=== PATIENT | female | born 1995 | race Caucasian/White ===

== ENCOUNTER 2020-03-04 01:26 | Inpatient (IN) | payer BC ==
[2020-03-04] MEDS ORDERED: Nalbuphine 10 MG/ML Syringe IVPUSH PRN (19:42)
[2020-03-04] MEDS ORDERED: Sodium Chloride 0.9% 10 ML Syringe FLUSH PRN (19:42)
[2020-03-04] MEDS ORDERED: Ondansetron 4 MG/2 ML SDV IVPUSH PRN (19:42)
[2020-03-04] MEDS ORDERED: Oxytocin/Lactated Ringers 10 UNIT/1,000 ML BAG IV SCH ×2 (19:45)
[2020-03-04] MEDS: Lactated Ringers 1,000 ML IV SCH ×3 (20:31→22:50)
[2020-03-04] MEDS ORDERED: ePHEDrine 50 MG/ML SDV IVPUSH PRN (21:03)
[2020-03-04] MEDS ORDERED: Bupivacaine/fentaNYL/NS 100 ML Bag EPIDUR PRN (21:03)
[2020-03-04] MEDS ORDERED: fentaNYL 100 MCG/2 ML SDV EPIDUR PRN (21:03)
[2020-03-04] MEDS ORDERED: diphenhydrAMINE 50 MG/ML SDV IVPUSH PRN (21:03)
--- NOTE | 2020-03-04 21:29 | PCM.PREANE ---
Preanesthetic Assessment - Procedure Proposed Procedure: katharina - Anesthesia/Transfusion/Family Hx Anesthesia History: Prior Anesthesia Without Reaction Family History of Anesthesia Reaction: No Transfusion History: No Prior Transfusion(s) - Review of Systems General: No Symptoms Pulmonary: No Symptoms Cardiovascular: No Symptoms Gastrointestinal: No Symptoms Neurological: No Symptoms Other: Reports: None - Physical Assessment Vital Signs: Last Vital Signs Temp 98.5 F 03/04/20 19:42 Pulse 97 03/04/20 19:42 Resp 14 03/04/20 19:42 BP 134/87 03/04/20 19:42 Pulse Ox 98 03/04/20 19:42 Height: 5 ft 5 in Weight: 70.023 kg ASA Class: 2 Mental Status: Alert & Oriented x3 Airway Class: Mallampati = 1 Dentition: Reports: Normal Dentition Thyro-Mental Finger Breadths: 3 Mouth Opening Finger Breadths: 3 ROM/Head Extension: Full Lungs: Clear to Auscultation, Normal Respiratory Effort Cardiovascular: Regular Rate, Regular Rhythm - Lab Values: Laboratory Last Values WBC 10.01 K/mm3 (3.98-10.04) 03/04/20 20:36 RBC 4.20 M/mm3 (3.98-5.22) 03/04/20 20:36 Hgb 12.2 gm/dl (11.2-15.7) 03/04/20 20:36 Hct 37.4 % (34.1-44.9) 03/04/20 20:36 MCV 89.0 fl (79.4-94.8) 03/04/20 20:36 MCH 29.0 pg (25.6-32.2) 03/04/20 20:36 MCHC 32.6 g/dl (32.2-35.5) 03/04/20 20:36 RDW Std Deviation 41.0 fL (36.4-46.3) 03/04/20 20:36 Plt Count 200 K/mm3 (182-369) 03/04/20 20:36 MPV 10.7 fl (9.4-12.3) 03/04/20 20:36 Neut % (Auto) 77.1 % (34.0-71.1) H 03/04/20 20:36 Lymph % (Auto) 16.5 % (19.3-51.7) L 03/04/20 20:36 [place] % (Auto) 5.5 % (4.7-12.5) 03/04/20 20:36 Eos % (Auto) 0.4 (0.7-5.8) L 03/04/20 20:36 Baso % (Auto) 0.1 % (0.1-1.2) 03/04/20 20:36 Neut # (Auto) 7.72 K/mm3 (1.56-6.13) H 03/04/20 20:36 Lymph # (Auto) 1.65 K/mm3 (1.18-3.74) 03/04/20 20:36 [place] # (Auto) 0.55 K/mm3 (0.24-0.36) H 03/04/20 20:36 Eos # (Auto) 0.04 K/mm3 (0.04-0.36) 03/04/20 20:36 Baso # (Auto) 0.01 K/mm3 (0.01-0.08) 03/04/20 20:36 SARS-CoV-2 RNA (CLAU) Negative (NEGATIVE) 03/04/20 19:25 - Allergies Allergies/Adverse Reactions: Allergies Allergy/AdvReac Type Severity Reaction Status Date / Time No Known Allergies Allergy Verified 03/04/20 19:25 - Blood Blood Available: No - Acknowledgements Anesthesia Type Planned: Epidural Pt an Appropriate Candidate for the Planned Anesthesia: Yes Alternatives and Risks of Anesthesia Discussed w Pt/Guardian: Yes Pt/Guardian Understands and Agrees with Anesthesia Plan: Yes PreAnesthesia Questionnaire Cardiovascular History: Reports: None Respiratory History: Reports: None Gastrointestinal History: Reports: None HAND PRESSER History: Reports: : 2 Para: 1 Hematologic History: Reports: Anemia - Infectious Disease History Infectious Disease History: Reports: Chicken Pox - Past Surgical History Female Surgical History: Reports: Breast Reduction - SUBSTANCE USE Tobacco Use Status *Q: Never Tobacco User Tobacco Use Within Last Twelve Months: No Second Hand Smoke Exposure: No Days Per Week of Alcohol Use: 0 Recreational Drug Use History: No - HOME MEDS Home Medications: Home Meds Ferrous Sulfate [Iron] 325 mg PO DAILY 03/04/20 [History] Vits #93/Iron Fum/FA [ Formula Tablet] 1 tab PO DAILY 03/04/20 [History] - CURRENT (IN HOUSE) MEDS Current Meds: Current Medications Diphenhydramine HCl (Benadryl) 25 mg IVPUSH Q6H PRN PRN Reason: pruritis Ephedrine Sulfate (Ephedrine Sulfate) 5 mg IVPUSH ASDIRECTED PRN PRN Reason: Hypotension Fentanyl (Sublimaze) 100 mcg EPIDUR Q3H PRN PRN Reason: Pain Last Admin: 03/04/20 21:19 Dose: 100 mcg Documented by: Fentanyl/Bupivacaine HCl (Fentanyl/Bupivacaine/Ns 2 Mcg-0.125% 100 Ml) 100 ml EPIDUR ASDIRECTED PRN PRN Reason: Pain Last Admin: 03/04/20 21:16 Dose: 100 ml Documented by: Lactated Ringer's (Ringers, Lactated) 1,000 mls @ 100 mls/hr IV ASDIRECTED LUIS Last Admin: 03/04/20 20:31 Dose: 100 mls/hr Documented by: Oxytocin/Lactated Ringer's (Pitocin In Lr 10 Units/1,000 Ml) 10 unit in 1,000 mls @ 12 mls/hr IV TITRATE LUIS; Protocol Oxytocin/Lactated Ringer's (Pitocin In Lr 10 Units/1,000 Ml) 10 unit in 1,000 mls @ 100 mls/hr IV .CONTINUOUS LUIS Nalbuphine HCl (Nubain) 10 mg IVPUSH Q2H PRN PRN Reason: Pain Ondansetron HCl (Zofran) 4 mg IVPUSH Q4H PRN PRN Reason: Nausea/Vomiting Sodium Chloride (Saline Flush) 10 ml FLUSH ASDIRECTED PRN PRN Reason: Keep Vein Open
--- NOTE | 2020-03-04 22:14 | PCM.LDHP ---
L&D History of Present Illness - General Date of Service: 03/04/20 Admit Problem/Dx: Patient Status Order with Admit Dx/Problem 03/04/20 19:42 Admission Status [Patient Status] [ADT] Routine Admission Diagnosis/Problem Admission Diagnosis/Problem 03/04/20 22:04 Kerrie is a 24-year-old 2 para 1-0-0-1 white female at 39-1/7 weeks gestational age with an JEREMIAS of 03/10/2020 who was admitted on 03/04/2020 active induction of labor. Source of Information: Patient History Limitations: Reports: No Limitations - History of Present Illness Introduction:: Kerrie is a 24-year-old 2 para 1-0-0-1 white female at 39-1/7 weeks gestational age with an JEREMIAS of 03/10/2020 who was admitted on 03/04/2020 active induction of labor. Procedure of induction of labor, its risks, benefits and alternatives including allowing for natural onset of labor are also discussed with patient. She appears to understand and wishes to proceed. SIGNS CLEANER history: 2 para 1-0-0-1. JEREMIAS 03/10/2020 was set by a certain last menstrual period starting 06/04/2019 and supported by ultrasounds done on 07/21/2019 at 6-4/7 weeks gestational age, ultrasound done on 08/21/2019 and and ultrasound done on 11/06/2019. Patient had menarche at approximately age 11. Cycles are regular on a monthly basis. LMP 06/04/2019 was certain and she was not using any control at the time of conception. Her last vaginal delivery occurred on 07/17/2012 at 38 weeks gestational age after 12 hours of labor. She delivered a 7 pound 2 ounce male via normal spontaneous vaginal delivery. She had an epidural for labor analgesia. course: Patient was first seen at 6 weeks for an initial ultrasound evaluation. Her first medical visit however otherwise was on 08/21/2019. She was seen on a regular basis throughout the . Her weight gain was from 123 up to 148.8 pounds for a 25.8 pound increase. Her vital signs remained stable throughout the course. Her fundal height growth was appropriate. Pat ient is group B strep negative. She is heterozygous factor V positive. She has a history of breast reduction surgery. She desires epidural in labor and delivery. Her [place] depression screen score is 1/30 on 11/03/2019. She had flu vaccination administered on 02/10/2020. She had a negative prequell noninvasive screen. She had a normal 1 hour GTT. Patient had her Tdap on 01/13/2020. She is rubella immune. HPV immunization occurred in 2007. Hepatitis B immunizations occurred in 1994. Meningococcal immunizations occurred in 2006. Laboratory testing in : Blood is a positive with a negative antibody screen. First laboratory testing showed a hemoglobin which was 13.4. Platelets were 282,000. She is rubella immune. RPR is nonreactive. Urine cu lture was negative. Hepatitis B surface antigen and HIV assays were both negative as were her chlamydia and gonorrhea tests. Second trimester laboratory testing showed a hemoglobin which was 11.5 g/dL and platelets that were at 224,000. Her diabetic screening test was normal at 85. Group B strep screen was negative. An RPR done on 12/03/2019 was negative. Patient reported no close contacts with Covid 19 virus positive patients. Allergies: None Medications: 1. vitamins 1 daily 2. Ferrous sulfate 325 mg p.o. daily. Past medical history: 1. Normal spontaneous vaginal delivery 07/17/2012 Past surgical history: 1. Breast reduction surgery 2012. Family history: Mother is alive and well age 60. She did have a history of miscarriage. Father is alive, on high blood pressure medication and is age 64. 2 brothers one with depression and one with high blood pressure. 2 sisters alive and well. One sister with a miscarriage x2 he had a sister with and was 1 miscarriage. Maternal grandmother is from old age and other causes unknown. Paternal grandfather cause unknown. Paternal grandmother is secondary to Alzheimer's disease. Paternal grandfather is secondary to old age and unknown causes. There is no family history of cancer, bleeding or blood clotting disorders, anesthesia related issues or related issues. Social history: Patient is . is Maxim Miramontes. 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 They live in [place]. She does not use any significant also alcohol, drugs or tobacco. Review of systems: In general patient has no complaints. She reports good activity. Skin: Negative Lungs: No infectious symptoms or shortness of breath Cardiovascular: No chest pain or exercise intolerance Breasts: No lumps, changes in size, pain, dimpling, discharge or axillary or supraclavicular concerns. Changes associated with . GI: Negative : changes only. Musculoskeletal: Negative Neurological: Negative Physical exam: In general the patient is well-developed, well-nourished, pleasant female of stated age in no acute distress. On last evaluation clinic patient's weight was 148.8. Blood pressure is 122/60. heart rate was 144. Skin is warm dry without lesions. HEENT, neck and back within normal limits. Lungs are clear with good breath sounds in all lung davis. Cardiovascular exam shows regular and rhythm without murmurs. Breast exam is deferred having been done at first visit and found to be normal is not repeated at this time. Abdomen is gravid with fundal height on last evaluation clinic at 37 cmconsistent with dates. Genital per digital exam on last evaluation in clinic shows cervix to be 3 cm dilated, 80% effaced, soft, mid position and -3 station with vertex presentation.. Extremities and neurological exam are grossly within normal limits. Pain Score: 3 - Related Data Allergies/Adverse Reactions: Allergies Allergy/AdvReac Type Severity Reaction Status Date / Time No Known Allergies Allergy Verified 03/04/20 19:25 Home Medications: Home Meds Ferrous Sulfate [Iron] 325 mg PO DAILY 03/04/20 [History] Vits #93/Iron Fum/FA [ Formula Tablet] 1 tab PO DAILY 03/04/20 [History] Past Medical History Cardiovascular History: Reports: None Respiratory History: Reports: None Gastrointestinal History: Reports: None SIGNS CLEANER History: Reports: Hematologic History: Reports: Anemia - Infectious Disease History Infectious Disease History: Reports: Chicken Pox - Past Surgical History Female Surgical History: Reports: Breast Reduction Social & Family History - Family History Family Medical History: Noncontributory - Tobacco Use Tobacco Use Status *Q: Never Tobacco User Second Hand Smoke Exposure: No - Alcohol Use Days Per Week of Alcohol Use: 0 - Recreational Drug Use Recreational Drug Use: No H&P Review of Systems - Review of Systems: Review Of Systems: See Below L&D Exam - Exam Exam: See Below - Vital Signs Vital Signs: Last Vital Signs Temp 36.9 C 03/04/20 19:42 Pulse 97 03/04/20 19:42 Resp 14 03/04/20 19:42 BP 134/87 03/04/20 19:42 Pulse Ox 98 03/04/20 19:42 Weight: 70.023 kg - Patient Data Lab Results Last 24 hrs: Laboratory Results - last 24 hr 03/04/20 03/04/20 Range/Units 19:25 20:36 WBC 10.01 (3.98-10.04) K/mm3 RBC 4.20 (3.98-5.22) M/mm3 Hgb 12.2 (11.2-15.7) gm/dl Hct 37.4 (34.1-44.9) % MCV 89.0 (79.4-94.8) fl MCH 29.0 (25.6-32.2) pg MCHC 32.6 (32.2-35.5) g/dl RDW Std Deviation 41.0 (36.4-46.3) fL Plt Count 200 (182-369) K/mm3 MPV 10.7 (9.4-12.3) fl Neut % (Auto) 77.1 H (34.0-71.1) % Lymph % (Auto) 16.5 L (19.3-51.7) % [place] % (Auto) 5.5 (4.7-12.5) % Eos % (Auto) 0.4 L (0.7-5.8) Baso % (Auto) 0.1 (0.1-1.2) % Neut # (Auto) 7.72 H (1.56-6.13) K/mm3 Lymph # (Auto) 1.65 (1.18-3.74) K/mm3 [place] # (Auto) 0.55 H (0.24-0.36) K/mm3 Eos # (Auto) 0.04 (0.04-0.36) K/mm3 Baso # (Auto) 0.01 (0.01-0.08) K/mm3 SARS-CoV-2 RNA (CLAU) Negative (NEGATIVE) Result Diagrams: 03/04/20 20:36 Problem List Initiated/Reviewed/Updated: Yes Orders Last 24hrs: Active Orders 24 hr Category Date Time Status Admission Status [Patient Status] [ADT] Routine ADT 03/04/20 19:42 Active Activity as Tolerated [RC] PFP Care 03/04/20 19:42 Active Communication Order [RC] ASDIRECTED Care 03/04/20 19:42 Active Non Stress Test [RC] PER UNIT ROUTINE Care 03/04/20 19:42 Active Notify Provider [RC] ASDIRECTED Care 03/04/20 21:03 Active Notify Provider [RC] PFP Care 03/04/20 19:42 Active Notify Provider [RC] PRN Care 03/04/20 19:42 Active Peripheral IV Care [RC] . DIRECTED Care 03/04/20 19:43 Active Pump Management, Intrathecal [RC] ASDIRECTED Care 03/04/20 19:43 Active Vital Signs [RC] PER UNIT ROUTINE Care 03/04/20 19:42 Active Regular Diet [DIET] Diet 03/05/20 Breakfast Active BLOOD BANK HOLD SPECIMEN [BBK] Stat Lab 03/04/20 19:42 Ordered RAPID PLASMA REAGIN,RPR [CHEM] Routine Lab 03/04/20 20:36 Received Bupivacaine/fentaNYL/NS [fentaNYL/Bupivacaine/NS 2 MCG- Med 03/04/20 21:03 Active 0.125% 100 ML] 100 ml EPIDUR ASDIRECTED PRN Lactated Ringers [Ringers, Lactated] 1,000 ml Med 03/04/20 19:45 Active IV ASDIRECTED Nalbuphine [Nubain] Med 03/04/20 19:42 Active 10 mg IVPUSH Q2H PRN Ondansetron [Zofran] Med 03/04/20 19:42 Active 4 mg IVPUSH Q4H PRN Oxytocin/Lactated Ringers [Pitocin in LR 10 Units/1,000 Med 03/04/20 19:45 Active ML] 10 unit in 1,000 ml IV .CONTINUOUS Oxytocin/Lactated Ringers [Pitocin in LR 10 Units/1,000 Med 03/04/20 19:45 Active ML] 10 unit in 1,000 ml IV TITRATE Sodium Chloride 0.9% [Saline Flush] Med 03/04/20 19:42 Active 10 ml FLUSH ASDIRECTED PRN diphenhydrAMINE [Benadryl] Med 03/04/20 21:03 Active 25 mg IVPUSH Q6H PRN ePHEDrine [ePHEDrine sulfate] Med 03/04/20 21:03 Active 5 mg IVPUSH ASDIRECTED PRN fentaNYL [Sublimaze] Med 03/04/20 21:03 Active 100 mcg EPIDUR Q3H PRN Electronic Heart Tones Ext w TOCO [WOMSER] Oth 03/04/20 19:42 Ordered Routine Electronic Heart Tones Internal [WOMSER] Per Unit Oth 03/04/20 19:42 Ordered Routine Peripheral IV Insertion Adult [OM.PC] Routine Oth 03/04/20 19:42 Ordered Resuscitation Status Routine Resus Stat 03/04/20 19:42 Ordered Medication Orders Diphenhydramine HCl (Benadryl) 25 mg IVPUSH Q6H PRN PRN Reason: pruritis Ephedrine Sulfate (Ephedrine Sulfate) 5 mg IVPUSH ASDIRECTED PRN PRN Reason: Hypotension Fentanyl (Sublimaze) 100 mcg EPIDUR Q3H PRN PRN Reason: Pain Last Admin: 03/04/20 21:19 Dose: 100 mcg Documented by: DUKACAR Fentanyl/Bupivacaine HCl (Fentanyl/Bupivacaine/Ns 2 Mcg-0.125% 100 Ml) 100 ml EPIDUR ASDIRECTED PRN PRN Reason: Pain Last Admin: 03/04/20 21:16 Dose: 100 ml Documented by: DUKACAR Lactated Ringer's (Ringers, Lactated) 1,000 mls @ 100 mls/hr IV ASDIRECTED LUIS Last Admin: 03/04/20 20:31 Dose: 100 mls/hr Documented by: DUKACAR Oxytocin/Lactated Ringer's (Pitocin In Lr 10 Units/1,000 Ml) 10 unit in 1,000 mls @ 12 mls/hr IV TITRATE LUSI; Protocol Oxytocin/Lactated Ringer's (Pitocin In Lr 10 Units/1,000 Ml) 10 unit in 1,000 mls @ 100 mls/hr IV .CONTINUOUS LUIS Nalbuphine HCl (Nubain) 10 mg IVPUSH Q2H PRN PRN Reason: Pain Ondansetron HCl (Zofran) 4 mg IVPUSH Q4H PRN PRN Reason: Nausea/Vomiting Sodium Chloride (Saline Flush) 10 ml FLUSH ASDIRECTED PRN PRN Reason: Keep Vein Open Assessment/Plan Comment:: Haresh Sy is a 24-year-old 2 para 1-0-0-1 white female at 39-1/7 weeks gestational age with an JEREMIAS of 03/10/2020 who was admitted on 03/04/2020 active induction of labor. 2. Group B strep screen negative 3. Risk factors include heterozygous factor V positive statuspatient is not a candidate for thromboembolism prophylaxis. 4. Patient is status post breast reduction surgery. 5. Patient has had her flu shot administered during on 02/10/2020. 6. Patient has had her Tdap during the course of on 01/13/2020 7. Patient had a negative prequel noninvasive screen 8. Patient had a normal 1 hour GTT. Plan: 1. Admit for artificial rupture of membranes induction of labor. Will use Pitocin augmentation if indicated. 2. Epidural as needed for labor analgesia 3. Routine labor care 4. Anticipate normal spontaneous vaginal delivery.
[2020-03-05] MEDS ORDERED: Bupivacaine 0.25% 10 ML SDV ONE
--- NOTE | 2020-03-05 01:54 | PCM.SN.2 ---
- Free Text/Narrative Note: Delivery note: Kerrie is a 24-year-old 2 para 1-0-0-1 white female at 39-1/7 weeks gestational age with an JEREMIAS of 03/10/2020 who was admitted on 03/04/2020 active induction of labor. After discussion of the procedure, risk, benefits, alternatives of care she is in agreement and will be to proceed with induction. Induction consist of artificial rupture membranes. Patient was 3 cm, 80% effaced, very soft, -1, anterior, vertex presentationamniotic fluid was clear. Labor ensued and the patient progressed well during the course of the evening and night with at approximately 0115 hrs. on 03/05/2020 the patient became completely dilated. She pushed x2 contractions delivered a viable, harper, Female named Alex Kramer. The baby delivered in a direct occiput anterior position over an intact perineum. No problems were encountered with the delivery. Baby was placed on mom's abdomen. Nose and mouth were bulb suctioned and baby was dried with warm blanket. The Pitocin was increased to 500 cc/h to facilitate increase in uterine tone and decrease likelihood of uterine bleeding. The umbilical cord was noted to have a true knot within it. It was a very healthy robust cord with significant amount of Magnolia's jelly. After 2 to 3 minutes the cord was clamped x2 and cut by the baby's father down. 3 vessels were noted within the cord. Cord blood was obtained. The peritoneum was confirmed to be intact and no suturing was required. The placenta delivered intact and complete at 0132 hrs. It presented in a Gordon presentation with a slight heart-shaped appearance. It was inspected and then it was discarded per patient desire. Estimated blood loss was 200 cc. Condition: Good
[2020-03-05] MEDS ORDERED: Acetaminophen 325 MG Tab PO PRN (02:32)
[2020-03-05] MEDS ORDERED: Benzocaine/Menthol 20%-0.5% Spray 56 GM Canister TOP PRN (02:32)
[2020-03-05] MEDS ORDERED: Witch Hazel Medicated Pads 40/Jar TOP PRN (02:32)
[2020-03-05] MEDS: Ibuprofen 600 MG Tab PO PRN ×4 (02:58→19:51)
--- NOTE | 2020-03-05 07:42 | PCM48HPAN ---
Post Anesthesia Note - EVALUATION WITHIN 48HRS OF ANESTHETIC Vital Signs in Normal Range: Yes Patient Participated in Evaluation: Yes Respiratory Function Stable: Yes Airway Patent: Yes Cardiovascular Function Stable: Yes Hydration Status Stable: Yes Pain Control Satisfactory: Yes Nausea and Vomiting Control Satisfactory: Yes Mental Status Recovered: Yes Vital Signs: Last Vital Signs Temp 36.9 C 03/04/20 19:42 Pulse 97 03/04/20 19:42 Resp 14 03/04/20 19:42 BP 134/87 03/04/20 19:42 Pulse Ox 98 03/04/20 19:42
[2020-03-05] MEDS: Docusate Sodium 100 MG Cap PO PRN ×2 (08:16→19:52)
[2020-03-05] MEDS: Prenatal Multivitamin with Calcium/Folic Acid/Iron Tab PO SCH (08:17)
[2020-03-06] MEDS: Ibuprofen 600 MG Tab PO PRN ×2 (03:07→09:21)
[2020-03-06] MEDS: Docusate Sodium 100 MG Cap PO PRN (09:21)
[2020-03-06] MEDS: Prenatal Multivitamin with Calcium/Folic Acid/Iron Tab PO SCH (09:23)
--- NOTE | 2020-03-06 09:46 | PCM.SN.2 ---
- Free Text/Narrative Note: Post Progress Note PPD #1 Subjective: Doing well overall. Ambulating without difficulty. Lochia minimal. Voiding without difficulty. Tolerating regular diet without nausea or vomiting. Pain controlled with oral medications. Breast-feeding with minimal difficulty. Objective: Vitals: Vital Signs - 24 hr 03/05/20 03/05/20 03/05/20 15:55 16:00 19:47 Temperature 36.1 C 36.6 C Pulse, 58 L 61 Peripheral Respiratory 15 16 Rate Blood Pressure 118/72 120/88 O2 Sat by Pulse 100 99 Oximetry 03/06/20 03:07 Temperature 36.4 C Pulse, 70 Peripheral Respiratory 14 Rate Blood Pressure 112/69 O2 Sat by Pulse 98 Oximetry Physical Exam General: Alert and oriented, no acute distress Lungs: Clear to auscultation bilaterally Heart: Regular rate and rhythm Abdomen: Soft, minimal appropriate tenderness, non-distended, fundus midline, nontender, and at the umbilicus Extremities: No edema Laboratory Tests 03/04/20 03/04/20 03/04/20 Range/Units 19:25 20:36 20:36 WBC 10.01 (3.98-10.04) K/mm3 RBC 4.20 (3.98-5.22) M/mm3 Hgb 12.2 (11.2-15.7) gm/dl Hct 37.4 (34.1-44.9) % MCV 89.0 (79.4-94.8) fl MCH 29.0 (25.6-32.2) pg MCHC 32.6 (32.2-35.5) g/dl RDW Std Deviation 41.0 (36.4-46.3) fL Plt Count 200 (182-369) K/mm3 MPV 10.7 (9.4-12.3) fl Neut % (Auto) 77.1 H (34.0-71.1) % Lymph % (Auto) 16.5 L (19.3-51.7) % [place] % (Auto) 5.5 (4.7-12.5) % Eos % (Auto) 0.4 L (0.7-5.8) Baso % (Auto) 0.1 (0.1-1.2) % Neut # (Auto) 7.72 H (1.56-6.13) K/mm3 Lymph # (Auto) 1.65 (1.18-3.74) K/mm3 [place] # (Auto) 0.55 H (0.24-0.36) K/mm3 Eos # (Auto) 0.04 (0.04-0.36) K/mm3 Baso # (Auto) 0.01 (0.01-0.08) K/mm3 RPR Non-reactive (NONREACTIVE) SARS-CoV-2 RNA (CLAU) Negative (NEGATIVE) ASSESSMENT: 24-year-old female -0-0-2 s/p normal vaginal delivery PPD #1, complicated by heterozygous factor V Leiden without personal or family history of VTE and history of breast reduction surgery PLAN: Doing well Breast-feeding with minimal difficulty. Assist as needed Lochia minimal. Continue to monitor for appropriate lochia. Continue routine care Patient diagnosed with factor V Leiden heterozygous disorder during this . She does not have a history of VTE and there is no family history of VTE in a first-degree relative. Discussed the risks of increased chances for VTE in the state and she states understanding. Patient declines anticoagulation at this time. Anticipate discharge home today Sammy Limon MD 9:43 AM 03/06/2020
--- NOTE | 2020-03-06 09:54 | PCM.DCSUM1 ---
Discharge Summary - Hospital Course Free Text/Narrative:: Delivery note: Kerrie is a 24-year-old 2 para 1-0-0-1 white female at 39-1/7 weeks gestational age with an JEREMIAS of 03/10/2020 who was admitted on 03/04/2020 active induction of labor. After discussion of the procedure, risk, benefits, alternatives of care she is in agreement and will be to proceed with induction. Induction consist of artificial rupture membranes. Patient was 3 cm, 80% effaced, very soft, -1, anterior, vertex presentationamniotic fluid was clear. Labor ensued and the patient progressed well during the course of the evening and night with at approximately 0115 hrs. on 03/05/2020 the patient became completely dilated. She pushed x2 contractions delivered a viable, harper, Female named Alex Kramer. The baby delivered in a direct occiput anterior position over an intact perineum. No problems were encountered with the delivery. Baby was placed on mom's abdomen. Nose and mouth were bulb suctioned and baby was dried with warm blanket. The Pitocin was increased to 500 cc/h to facilitate increase in uterine tone and decrease likelihood of uterine bleeding. The umbilical cord was noted to have a true knot within it. It was a very healthy robust cord with significant amount of Nancy's jelly. After 2 to 3 minutes the cord was clamped x2 and cut by the baby's father down. 3 vessels were noted within the cord. Cord blood was obtained. The peritoneum was confirmed to be intact and no suturing was required. The placenta delivered intact and complete at 0132 hrs. It presented in a Gordon presentation with a slight heart-shaped appearance. It was inspected and then it was discarded per patient desire. Estimated blood loss was 200 cc. Condition: Good HPI Initial Comments: Delivery note: Kerrie is a 24-year-old 2 para 1-0-0-1 white female at 39-1/7 weeks gestational age with an JEREMIAS of 03/10/2020 who was admitted on 03/04/2020 active induction of labor. After discussion of the procedure, risk, benefits, alternatives of care she is in agreement and will be to proceed with induction. Induction consist of artificial rupture membranes. Patient was 3 cm, 80% effaced, very soft, -1, anterior, vertex presentationamniotic fluid was clear. Labor ensued and the patient progressed well during the course of the evening and night with at approximately 0115 hrs. on 03/05/2020 the patient became completely dilated. She pushed x2 contractions delivered a viable, harper, Female Infant named Alex Kramer. The baby delivered in a direct occiput anterior position over an intact perineum. No problems were encountered with the delivery. Baby was placed on mom's abdomen. Nose and mouth were bulb suctioned and baby was dried with warm blanket. The Pitocin was increased to 500 cc/h to facilitate increase in uterine tone and decrease likelihood of uterine bleeding. The umbilical cord was noted to have a true knot within it. It was a very healthy robust cord with significant amount of Nancy's jelly. After 2 to 3 minutes the cord was clamped x2 and cut by the baby's father down. 3 vessels were noted within the cord. Cord blood was obtained. The peritoneum was confirmed to be intact and no suturing was required. The placenta delivered intact and complete at 0132 hrs. It presented in a Gordon presentation with a slight heart-shaped appearance. It was inspected and then it was discarded per patient desire. Estimated blood loss was 200 cc. Condition: Good Brief History: Delivery note: Kerrie is a 24-year-old 2 para 1-0-0-1 white female at 39-1/7 weeks gestational age with an JEREMIAS of 03/10/2020 who was admitted on 03/04/2020 active induction of labor. After discussion of the procedure, risk, benefits, alternatives of care she is in agreement and will be to proceed with induction. Induction consist of artificial rupture membranes. Patient was 3 cm, 80% effaced, very soft, -1, anterior, vertex presentationamniotic fluid was clear. Labor ensued and the patient progressed well during the course of the evening and night with at approximately 0115 hrs. on 03/05/2020 the patient became completely dilated. She pushed x2 contractions delivered a viable, harper, Female named Alex Kramer. The baby delivered in a direct occiput anterior position over an intact perineum. No problems were encountered with the delivery. Baby was placed on mom's abdomen. Nose and mouth were bulb suctioned and baby was dried with warm blanket. The Pitocin was increased to 500 cc/h to facilitate increase in uterine tone and decrease likelihood of uterine bleeding. The umbilical cord was noted to have a true knot within it. It was a very healthy robust cord with significant amount of Ogle's jelly. After 2 to 3 minutes the cord was clamped x2 and cut by the baby's father down. 3 vessels were noted within the cord. Cord blood was obtained. The peritoneum was confirmed to be intact and no suturing was required. The placenta delivered intact and complete at 0132 hrs. It presented in a Gordon presentation with a slight heart-shaped appearance. It was inspected and then it was discarded per patient desire. Estimated blood loss was 200 cc. Condition: Good Diagnosis: Stroke: No - Discharge Data Discharge Date: 03/06/20 Discharge Disposition: Home, Self-Care 01 Condition: Good - Referral to Home Health Primary Care Physician: Alexis Tello MD - Patient Summary/Data Complications: None Consults: None Hospital Course: Kerrie Miramontes was admitted for induction of labor. On admission her cervix was dilated to 3 cm. She was GBS negative. She was given pitocin for augmentation. She had artificial rupture of membranes with clear fluid. She was given an epidural for anesthesia. She progressed to complete and began pushing. On 03/05/2020 she had a normal vaginal delivery of a live female at 13:26. Apgars of 8 and 9. Weight of 3510 g (7 pounds 11.8 ounces). Her course was uneventful. Her pain was well controlled and she had minimal lochia. She was ambulating, tolerating a regular diet and voiding normally. She was breast-feeding with minimal difficulty. She was afebrile and her hematocrit was 37.4 on admission. She desired to be discharged home on the morning of PPD #1. Her blood type is A+. Patient has heterozygous factor V Leiden disease without personal or family history of VTE and declines anticoagulation prophylaxis. - Patient Instructions Diet: Regular Diet as Tolerated Activity: Apply Ice, As Tolerated Activity, Other: Nothing in the vagina for 6 weeks Driving: May Drive Today Showering/Bathing: May Shower Notify Provider of: Fever, Increased Pain, Swelling and Redness, Drainage, Nausea and/or Vomiting Other/Special Instructions: Please contact your physician's office if you have heavy vaginal bleeding enough to soak a pad in less than an hour for several hours. Monitor for any signs of an infection in the breasts with severe pain or redness of the breast. - Discharge Plan *PRESCRIPTION DRUG MONITORING PROGRAM REVIEWED*: Not Applicable *COPY OF PRESCRIPTION DRUG MONITORING REPORT IN PATIENT VIKTOR: Not Applicable Home Medications: Home Meds Ferrous Sulfate [Iron] 325 mg PO DAILY 03/04/20 [History] Vits #93/Iron Fum/FA [ Formula Tablet] 1 tab PO DAILY 03/04/20 [History] Acetaminophen [Tylenol] 650 mg PO Q6H PRN #60 tablet 03/06/20 [Rx] Benzocaine/Menthol [Dermoplast Pain Relief Mauldin] 1 spray TOP ASDIRECTED PRN canister 03/06/20 [Rx] Docusate Sodium [Colace] 100 mg PO BID PRN cap 03/06/20 [Rx] Ibuprofen [Motrin] 600 mg PO Q6H PRN tablet 03/06/20 [Rx] blaire Collado [Tucks] 1 pad TOP ASDIRECTED PRN pad 03/06/20 [Rx] Patient Handouts: Care After Vaginal Delivery Referrals: Alexis Tello MD [Primary Care Provider] - (Follow-up in 2 to 3 weeks for routine visit or earlier as needed) - Discharge Summary/Plan Comment DC Time >30 min.: No - Patient Data Vitals - Most Recent: Last Vital Signs Temp 36.4 C 03/06/20 03:07 Pulse 70 03/06/20 03:07 Resp 14 03/06/20 03:07 BP 112/69 03/06/20 03:07 Pulse Ox 98 03/06/20 03:07 Weight - Most Recent: 70.023 kg I&O - Last 24 hours: Intake & Output 03/05/20 03/06/20 03/06/20 22:59 06:59 14:59 Intake Total 240 Balance 240 Med Orders - Current: Current Medications Acetaminophen (Tylenol) 650 mg PO Q4H PRN PRN Reason: mild pain or fever Benzocaine/Menthol (Dermoplast Pain Relief Mauldin) 0 gm TOP ASDIRECTED PRN PRN Reason: Perineal Comfort Measure Last Admin: 03/05/20 02:57 Dose: 1 canister Documented by: Docusate Sodium (Colace) 100 mg PO BID PRN PRN Reason: Constipation Last Admin: 03/06/20 09:21 Dose: 100 mg Documented by: Ibuprofen (Motrin) 600 mg PO Q4H PRN PRN Reason: Mild pain or fever Last Admin: 03/06/20 09:21 Dose: 600 mg Documented by: Prenat Multivit/Inspector Machine Cut Glass/Iron/Folic Ac ( Plus Iron) 1 each PO DAILY LUIS Last Admin: 03/06/20 09:23 Dose: Not Given Documented by: Blaire Collado (Colleen) 1 pad TOP ASDIRECTED PRN PRN Reason: Perineal Comfort Measure Last Admin: 03/05/20 02:56 Dose: 1 canister Documented by: Discontinued Medications Bupivacaine HCl (Sensorcaine-Mpf 0.25%) 10 ml .ROUTE .[facility] Stop: 03/05/20 00:01 Diphenhydramine HCl (Benadryl) 25 mg IVPUSH Q6H PRN PRN Reason: pruritis Ephedrine Sulfate (Ephedrine Sulfate) 5 mg IVPUSH ASDIRECTED PRN PRN Reason: Hypotension Fentanyl (Sublimaze) 100 mcg EPIDUR Q3H PRN PRN Reason: Pain Last Admin: 03/04/20 21:19 Dose: 100 mcg Documented by: Fentanyl/Bupivacaine HCl (Fentanyl/Bupivacaine/Ns 2 Mcg-0.125% 100 Ml) 100 ml EPIDUR ASDIRECTED PRN PRN Reason: Pain Last Admin: 03/04/20 21:16 Dose: 100 ml Documented by: Lactated Ringer's (Ringers, Lactated) 1,000 mls @ 100 mls/hr IV ASDIRECTED LUIS Last Admin: 03/04/20 22:50 Dose: 100 mls/hr Documented by: Oxytocin/Lactated Ringer's (Pitocin In Lr 10 Units/1,000 Ml) 10 unit in 1,000 mls @ 12 mls/hr IV TITRATE LUIS; Protocol Last Admin: 03/05/20 01:27 Dose: 2 munits/min, 12 mls/hr Documented by: Oxytocin/Lactated Ringer's (Pitocin In Lr 10 Units/1,000 Ml) 10 unit in 1,000 mls @ 100 mls/hr IV .CONTINUOUS LUIS Nalbuphine HCl (Nubain) 10 mg IVPUSH Q2H PRN PRN Reason: Pain Ondansetron HCl (Zofran) 4 mg IVPUSH Q4H PRN PRN Reason: Nausea/Vomiting Sodium Chloride (Saline Flush) 10 ml FLUSH ASDIRECTED PRN PRN Reason: Keep Vein Open
== END 2020-03-06 11:40 | disposition home or self-care (01) | DRG 560 ==
LOC: JD.OB 01:26 → OBSVTOIN 03-05 01:26 → JD.OB 03-05 01:26
PROVIDERS: ADMIT Obstetrics & Gynecology; ATTEND Obstetrics & Gynecology
PROC: 10E0XZZ Delivery of Products of Conception, External Approach (ICD-10-PCS; principal; 2020-03-05)
PROC: 10907ZC Drainage of Amniotic Fluid, Therapeutic from Products of Conception, Via Natural or Artificial Opening (ICD-10-PCS; 2020-03-05)
PROC: 3E0R3BZ Introduction of Anesthetic Agent into Spinal Canal, Percutaneous Approach (ICD-10-PCS; 2020-03-05)
PROC: 00HU33Z Insertion of Infusion Device into Spinal Canal, Percutaneous Approach (ICD-10-PCS; 2020-03-05)
DX: O99.12 Other diseases of the blood and blood-forming organs and certain disorders involving the immune mechanism complicating childbirth (principal); Z3A.39 39 weeks gestation of pregnancy; Z37.0 Single live birth; Z20.828 Contact with and (suspected) exposure to other viral communicable diseases; D68.51 Activated protein C resistance
CPT/HCPCS: 01967; 36415; 51702; 59025; 59409; 85025; 86592; A9270-GY; J2590; J3010; J3490; J7120; U0002

== ENCOUNTER 2021-12-24 14:48 | Inpatient (IN) | payer BC ==
[2021-12-24] MEDS ORDERED: Sodium Chloride 0.9% 10 ML Syringe FLUSH PRN (17:24)
[2021-12-24] MEDS ORDERED: Ondansetron 4 MG/2 ML SDV IVPUSH PRN (17:24)
[2021-12-24] MEDS ORDERED: Nalbuphine HCl 10 MG/ 1ML Amp IVPUSH PRN (17:24)
[2021-12-24] MEDS ORDERED: Oxytocin/Lactated Ringers 10 UNIT/1,000 ML BAG IV SCH (17:30)
[2021-12-24] MEDS: Lactated Ringers 1,000 ML IV SCH ×2 (17:43→19:33)
[2021-12-24] MEDS ORDERED: Bupivacaine/fentaNYL/NS 100 ML Bag EPIDUR PRN (18:44)
[2021-12-24] MEDS ORDERED: diphenhydrAMINE 50 MG/ML SDV IVPUSH PRN (18:44)
[2021-12-24] MEDS ORDERED: ePHEDrine 50 MG/ML SDV IVPUSH PRN (18:44)
[2021-12-24] MEDS: fentaNYL 100 MCG/2 ML SDV EPIDUR PRN ×2 (18:53→21:18)
[2021-12-24] MEDS ORDERED: Bupivacaine 0.25% 10 ML SDV ONE (20:00)
[2021-12-24] MEDS ORDERED: Sodium Chloride 0.9% 10 ML Syringe FLUSH SCH (21:00)
[2021-12-24] MEDS ORDERED: Acetaminophen 325 MG Tab PO PRN (22:31)
[2021-12-24] MEDS ORDERED: Witch Hazel Medicated Pads 40/Jar TOP PRN (22:31)
[2021-12-24] MEDS ORDERED: Docusate Sodium 100 MG Cap PO PRN (22:31)
[2021-12-24] MEDS ORDERED: Benzocaine/Menthol 20%-0.5% Spray 78 GM Cannister TOP PRN (22:31)
[2021-12-24] MEDS: Ibuprofen 600 MG Tab PO PRN (23:11)
[2021-12-25] MEDS: Ibuprofen 600 MG Tab PO PRN ×2 (08:04→17:43)
[2021-12-25] MEDS ORDERED: Prenatal Multivitamin with Calcium/Folic Acid/Iron Tab PO SCH (09:00)
== END 2021-12-25 22:30 | disposition home or self-care (01) | DRG 560 ==
LOC: JD.OBCHECK 14:48 → JD.OB 14:49 → JD.OBCHECK 17:24 → JD.OB 17:24 → OBSVTOIN 22:08 → JD.OB 22:09
PROVIDERS: ADMIT Obstetrics & Gynecology; ATTEND Obstetrics & Gynecology
PROC: 10E0XZZ Delivery of Products of Conception, External Approach (ICD-10-PCS; principal; 2021-12-24)
PROC: 10907ZC Drainage of Amniotic Fluid, Therapeutic from Products of Conception, Via Natural or Artificial Opening (ICD-10-PCS; 2021-12-24)
PROC: 3E0R3BZ Introduction of Anesthetic Agent into Spinal Canal, Percutaneous Approach (ICD-10-PCS; 2021-12-24)
PROC: 00HU33Z Insertion of Infusion Device into Spinal Canal, Percutaneous Approach (ICD-10-PCS; 2021-12-24)
DX: O69.81X0 Labor and delivery complicated by cord around neck, without compression, not applicable or unspecified (principal); Z37.0 Single live birth; O99.12 Other diseases of the blood and blood-forming organs and certain disorders involving the immune mechanism complicating childbirth; D68.51 Activated protein C resistance; O76 Abnormality in fetal heart rate and rhythm complicating labor and delivery; Z3A.38 38 weeks gestation of pregnancy
CPT/HCPCS: 36415; 51702; 59025; 59409; 85025; 86592; A9270-GY; J2590; J3010; J3490; J7120